=== PATIENT | female | born 1965 | race Caucasian/White ===

== ENCOUNTER 2019-12-26 22:26 | Emergency (ER) | payer OTHER ==
[~2019-12-26] VITALS: Ht 162.6 cm; Wt 59.0 kg
[2019-12-27] MEDS ORDERED: KETO10TA2 PO (00:52)
[2019-12-27] MEDS ORDERED: NORFLEX100MG PO (00:52)
== END 2019-12-27 00:56 | disposition home or self-care (01) ==
LOC: ER 22:26
DX: M62.830 Muscle spasm of back (principal)